=== PATIENT | female | born 1955 | race Caucasian/White ===

== ENCOUNTER 2022-01-08 12:12 | Outpatient (CLI) | payer OTHER | END 2022-01-08 12:15 | disposition home or self-care (01) | LOC: RAD 12:12 | PROVIDERS: ATTEND Internal Medicine Rheumatology | DX: M15.0 Primary generalized (osteo)arthritis (principal); M05.79 Rheumatoid arthritis with rheumatoid factor of multiple sites without organ or systems involvement ==

== ENCOUNTER 2022-01-14 12:51 | Outpatient (CLI) | payer OTHER | END 2022-01-14 13:15 | disposition home or self-care (01) | LOC: MAMO-SONO 12:51 | PROVIDERS: ATTEND Obstetrics & Gynecology | DX: Z12.31 Encounter for screening mammogram for malignant neoplasm of breast (principal); N60.11 Diffuse cystic mastopathy of right breast; N60.12 Diffuse cystic mastopathy of left breast ==

== ENCOUNTER 2022-01-31 07:43 | Outpatient (CLI) | payer OTHER | END 2022-01-31 07:56 | disposition home or self-care (01) | LOC: SONOGRAMA 07:43 | PROVIDERS: ATTEND Obstetrics & Gynecology | DX: N60.11 Diffuse cystic mastopathy of right breast (principal); N60.12 Diffuse cystic mastopathy of left breast; Z12.31 Encounter for screening mammogram for malignant neoplasm of breast ==

== ENCOUNTER 2022-02-26 08:04 | Outpatient (CLI) | payer OTHER | END 2022-02-26 08:11 | disposition home or self-care (01) | LOC: RAD 08:04 | DX: M25.562 Pain in left knee (principal) ==

== ENCOUNTER 2022-04-08 09:26 | Outpatient (CLI) | payer OTHER | END 2022-04-08 09:35 | disposition home or self-care (01) | LOC: LAB 09:26 | PROVIDERS: ATTEND Orthopaedic Surgery | DX: Z76.89 Persons encountering health services in other specified circumstances (principal); I10 Essential (primary) hypertension; I49.9 Cardiac arrhythmia, unspecified; D64.9 Anemia, unspecified; E88.9 Metabolic disorder, unspecified; D68.8 Other specified coagulation defects; N39.0 Urinary tract infection, site not specified; A49.02 Methicillin resistant Staphylococcus aureus infection, unspecified site; E11.9 Type 2 diabetes mellitus without complications ==

== ENCOUNTER 2022-04-23 08:36 | Day surgery (SDC) | payer OTHER | END 2022-04-23 13:00 | disposition home or self-care (01) | LOC: CIR.AMB 08:36 | PROVIDERS: ATTEND Orthopaedic Surgery | DX: M65.841 Other synovitis and tenosynovitis, right hand (principal); M65.321 Trigger finger, right index finger; Z20.822 Contact with and (suspected) exposure to COVID-19; F17.210 Nicotine dependence, cigarettes, uncomplicated; Z71.6 Tobacco abuse counseling ==

== ENCOUNTER 2022-06-19 10:30 | Outpatient (CLI) | payer OTHER | END 2022-06-19 10:34 | disposition home or self-care (01) | LOC: MAMO-SONO 10:30 | PROVIDERS: ATTEND Obstetrics & Gynecology | DX: Z12.31 Encounter for screening mammogram for malignant neoplasm of breast (principal); N60.09 Solitary cyst of unspecified breast ==

== ENCOUNTER 2022-06-20 10:00 | Outpatient (CLI) | payer OTHER | END 2022-06-20 10:02 | disposition home or self-care (01) | LOC: NUCLEAR 10:00 | PROVIDERS: ATTEND Orthopaedic Surgery | DX: M81.0 Age-related osteoporosis without current pathological fracture (principal) ==

== ENCOUNTER 2023-07-03 15:23 | Outpatient (CLI) | payer OTHER | END 2023-07-03 15:32 | disposition home or self-care (01) | LOC: RAD 15:23 | PROVIDERS: ATTEND Internal Medicine | DX: Z01.810 Encounter for preprocedural cardiovascular examination (principal); M15.8 Other polyosteoarthritis; I10 Essential (primary) hypertension; M54.59 Other low back pain; E78.9 Disorder of lipoprotein metabolism, unspecified; E55.9 Vitamin D deficiency, unspecified; E11.51 Type 2 diabetes mellitus with diabetic peripheral angiopathy without gangrene; Z12.11 Encounter for screening for malignant neoplasm of colon; G62.9 Polyneuropathy, unspecified; Z12.31 Encounter for screening mammogram for malignant neoplasm of breast ==

== ENCOUNTER 2023-07-08 13:08 | Outpatient (CLI) | payer OTHER | END 2023-07-08 13:18 | disposition home or self-care (01) | LOC: MAMO-SONO 13:08 | PROVIDERS: ATTEND Internal Medicine | DX: Z12.31 Encounter for screening mammogram for malignant neoplasm of breast (principal) ==

== ENCOUNTER → 2023-08-04 | Outpatient (CLI) | payer OTHER | END | disposition home or self-care (01) | LOC: RAD 15:00 | PROVIDERS: ATTEND Orthopaedic Surgery | DX: M25.551 Pain in right hip (principal); M54.59 Other low back pain; M79.641 Pain in right hand; M65.341 Trigger finger, right ring finger ==

== ENCOUNTER → 2024-01-05 | Outpatient (CLI) | payer OTHER | END | disposition home or self-care (01) | LOC: MAMO-SONO 13:00 | PROVIDERS: ATTEND Surgery | DX: E04.1 Nontoxic single thyroid nodule (principal); N60.11 Diffuse cystic mastopathy of right breast; N60.12 Diffuse cystic mastopathy of left breast ==

== ENCOUNTER 2024-05-17 10:47 | Outpatient (CLI) | payer OTHER | END 2024-05-17 10:50 | disposition home or self-care (01) | LOC: SONOGRAMA 10:47 | PROVIDERS: ATTEND Internal Medicine Hematology & Oncology | DX: E04.2 Nontoxic multinodular goiter (principal); Z80.1 Family history of malignant neoplasm of trachea, bronchus and lung; F33.9 Major depressive disorder, recurrent, unspecified; R71.8 Other abnormality of red blood cells; R31.21 Asymptomatic microscopic hematuria ==

== ENCOUNTER 2024-05-27 09:22 | Outpatient (CLI) | payer OTHER | END 2024-05-27 09:27 | disposition home or self-care (01) | LOC: TOM 09:22 | PROVIDERS: ATTEND Internal Medicine Hematology & Oncology | DX: R59.1 Generalized enlarged lymph nodes (principal); E78.2 Mixed hyperlipidemia; F33.9 Major depressive disorder, recurrent, unspecified; R71.8 Other abnormality of red blood cells; R31.21 Asymptomatic microscopic hematuria; R97.0 Elevated carcinoembryonic antigen [CEA]; R97.1 Elevated cancer antigen 125 [CA 125]; R97.8 Other abnormal tumor markers; Z80.1 Family history of malignant neoplasm of trachea, bronchus and lung | CPT/HCPCS: 71260; Q9965 ==

== ENCOUNTER 2025-01-26 14:49 | Outpatient (CLI) | payer OTHER | END 2025-01-26 14:52 | disposition home or self-care (01) | LOC: MAMO-SONO 14:49 | PROVIDERS: ATTEND Obstetrics & Gynecology | DX: N60.11 Diffuse cystic mastopathy of right breast (principal); N60.12 Diffuse cystic mastopathy of left breast; Z12.31 Encounter for screening mammogram for malignant neoplasm of breast; N95.1 Menopausal and female climacteric states; N84.0 Polyp of corpus uteri ==

== ENCOUNTER 2025-02-03 14:30 | Outpatient (CLI) | payer OTHER | END 2025-02-03 14:31 | disposition home or self-care (01) | LOC: NUCLEAR 14:30 | PROVIDERS: ATTEND Obstetrics & Gynecology | DX: M81.0 Age-related osteoporosis without current pathological fracture (principal) ==

== ENCOUNTER 2025-02-03 15:26 | Outpatient (CLI) | payer OTHER | END 2025-02-03 15:31 | disposition home or self-care (01) | LOC: RAD 15:26 | PROVIDERS: ATTEND Orthopaedic Surgery | DX: M79.641 Pain in right hand (principal); M65.341 Trigger finger, right ring finger ==

== ENCOUNTER 2025-02-08 05:40 | Day surgery (SDC) | payer OTHER ==
[2025-02-03 09:25] VITALS: BP 108/70
[2025-02-03 09:50] LABS: HEMATOCRIT 38.5 % (36.0-45.00); MEAN CORPUSCULAR HEMOGLOBIN 32.6 pg (27.00-32.0); MEAN CORPUSCULAR HGB CONC 33.6 g/dl (32.0-36.0); PLATELET COUNT 360 K/uL (150-450); RED BLOOD COUNT 3.97 M/uL (4.00-6.00)
[2025-02-03 10:05] LABS: INR 1.05; PARTIAL THROMBOPLASTIN TIME 30.1 SECONDS (22.0-34.0); PROTHROMBIN TIME 11.4 SECONDS (9.0-11.5)
[2025-02-03 10:46] LABS: ALBUMIN 3.7 gm/dL (3.4-5.0); BILIRUBIN TOTAL 1.05 mg/dL (0.3-1.2); CALCIUM 9.5 mg/dL (8.5-10.1); CREATININE SERUM 0.77 mg/dL (0.55-1.02); GFR 74.55; POTASSIUM 4.59 mEq/L (3.5-5.1); TOTAL PROTEIN 6.7 gm/dL (6.4-8.2)
[2025-02-03 10:54] LABS: PH,URINE 6.5 (5.0-8.0); URINE APPEARANCE Clear; URINE BILIRRUBIN Negative (NEGATIVE); URINE BLOOD Moderate; URINE COLOR Yellow; URINE GLUCOSE Negative (NEGATIVE); URINE KETONE Negative (NEGATIVE); URINE LEUKOCYTE Negative; URINE NITRATE Negative; URINE PROTEIN Negative (NEGATIVE); URINE UROBILINOGEN 0.2 E.U./dl
[2025-02-03 10:59] LABS: URINE BACTERIA 759.8 uL (0.0-1933); URINE EPITHELIAL CELLS 10.2 uL (0.0-38.8); URINE RBC 139.7 uL (0.0-20.8); URINE WBC 5.6 uL (0.0-23.2)
[2025-02-03 11:11] LABS: COL EPI 105 SECONDS (82-175)
[2025-02-03 11:29] LABS: URINE CAST 0.29 uL (0.0-1.40)
[~2025-02-08] VITALS: Ht 175.3 cm; Wt 63.5 kg
[2025-02-08] MEDS ORDERED: LIDOCAINE HCL 1%/EPINEPHRINE 20ML VIAL IJ ONE (07:04)
[2025-02-08] MEDS ORDERED: BUPIVACAINE HCL/MPF 0.5% 30ML VIAL ONE (07:04)
[2025-02-08] MEDS ORDERED: CEFAZOLIN SODIUM 1,000 MG VIAL ONE (07:04)
== END 2025-02-08 11:25 | disposition home or self-care (01) ==
LOC: CIR.AMB 05:40
PROVIDERS: ATTEND Orthopaedic Surgery
DX: M65.341 Trigger finger, right ring finger (principal); M65.841 Other synovitis and tenosynovitis, right hand

== ENCOUNTER → 2025-04-12 08:12 | Outpatient (CLI) | payer OTHER | END | disposition home or self-care (01) | LOC: LAB 08:12 | PROVIDERS: ATTEND Orthopaedic Surgery | DX: E55.9 Vitamin D deficiency, unspecified (principal); M85.9 Disorder of bone density and structure, unspecified; E56.1 Deficiency of vitamin K ==

== ENCOUNTER 2025-06-24 12:42 | Outpatient (CLI) | payer OTHER | END 2025-06-24 12:45 | disposition home or self-care (01) | LOC: RAD 12:42 | PROVIDERS: ATTEND Anesthesiology Pain Medicine | DX: M79.672 Pain in left foot (principal) ==